=== PATIENT | male | born 1950 | race Caucasian/White ===

== ENCOUNTER 2020-10-25 20:49 | Emergency (ER) | payer MEDICARE, OTHER ==
[~2020-10-25] VITALS: Ht 175.3 cm; Wt 97.0 kg
[~2020-10-25 20:49] MED LIST: AMLODIPINE5 MG PO; LOSARTAN POTAS100 MG PO; LOSARTAN/HCT1 TA2 PO; MEDDOSEPAK OR; MEDDOSEPAK PO; MOBIC7.5 M1 PO; NORVASC5 M1 PO; PAIN RELIEF EX500 M1 PO; ROBITUSSIN AC10 ML PO; TRAMADOL HCL50 MG PO
[2020-10-25] MEDS ORDERED: HYDROCHLOROT12.5 M1 PO (21:25)
[2020-10-25 21:46] LABS: HEMATOCRIT 41.3 % (39.0-50.0); HEMOGLOBIN 14.2 g/dl (14.0-18.0); IMMATURE GRANULOCYTES 0.7 % (0.0-5.0); MEAN CELL VOLUME 94.7 fL CALC (80.0-100.0); MEAN CORPUSCULAR HGB 32.6 pG CALC (26.0-32.0); MEAN CORPUSCULAR HGB CONC 34.4 g/dL CAL (32.0-36.0); NEUT# 4.26 thou/uL (1.82-7.42); RED BLOOD COUNT 4.36 mill/uL (4.70-6.10); RED CELL DISTRI WIDTH 12.7 % (11.5-15.5)
[2020-10-25 22:01] LABS: ALBUMIN 4.7 g/dL (3.2-5.0); ALKALINE PHOSPHATASE 117 u/l (38-126); ANION GAP 16 (6-22 (CALC)); BILIRUBIN, TOTAL 1.1 mg/dL (0.0-1.4); BUN 18 mg/dL (8-23); BUN/CREATININE RATIO 23 (12-20 (CALC)); CARBON DIOXIDE 22 mmol/l (22-30); CHLORIDE 91 mmol/l (95-108); CREATININE 0.8 mg/dL (0.7-1.3); GFR > 60 ML/MIN (>=60 (CALC)); GFR FOR AFR.AMER. > 60 ML/MIN (>=60 (CALC)); POTASSIUM 4.1 mmol/l (3.5-5.1); SGOT/AST 38 u/l (19-48); SODIUM 125 mmol/l (137-146); TOTAL PROTEIN 8.4 g/dL (6.3-8.2)
[2020-10-25 22:03] LABS: D-DIMER 0.45 mg/L (0.19-0.60)
[2020-10-25 22:09] LABS: ACT PARTIAL THROMBO TIME 27.2 SECONDS (20.0-32.5); PROTHROMBIN TIME 9.7 SECONDS (9.0-12.5)
[2020-10-25 22:12] LABS: MYOGLOBIN 73 ng/mL (0 - 121)
[2020-10-25 22:49] LABS: URINE BILIRUBIN - DIPSTICK NEGATIVE (NEGATIVE); URINE BLOOD DIPSTICK NEGATIVE (NEGATIVE); URINE COLOR YELLOW; URINE GLUCOSE - DIPSTICK NEGATIVE (NEGATIVE); URINE KETONE TRACE mg/dL (NEGATIVE); URINE LEUK ESTERASE NEGATIVE (NEGATIVE); URINE PROTEIN - DIPSTICK NEGATIVE (NEG-TRACE); URINE SPECIFIC GRAVITY <=1.005; URINE UROBILINOGEN - DIPSTICK 0.2 E.U./dL (0.2)
[2020-10-25 22:50] LABS: URINE NITRITE - DIPSTICK NEGATIVE (Negative)
[2020-10-25] MEDS ORDERED: TOPROL XL50 MG PO (23:07)
[2020-10-25 23:19] VITALS: BP 145/69
== END 2020-10-25 23:23 | disposition home or self-care (01) ==
LOC: ED 20:49
PROVIDERS: Family Medicine
DX: E87.1 Hypo-osmolality and hyponatremia (principal); I10 Essential (primary) hypertension

== ENCOUNTER 2021-04-08 07:17 | Day surgery (SDC) | payer MEDICARE, OTHER ==
[~2021-04-08 07:17] MED LIST changes: +HYDROCHLOROT12.5 M1 PO; +TOPROL XL50 MG PO
[2021-04-08 10:20] VITALS: BP 171/74
== END 2021-04-08 10:20 | disposition home or self-care (01) ==
LOC: ORM 07:17
PROVIDERS: ATTEND Anesthesiology Pain Medicine
DX: M54.59 Other low back pain (principal)

== ENCOUNTER 2021-11-03 20:40 | Emergency (ER) | payer MEDICARE, OTHER ==
[~2021-11-03] VITALS: Ht 175.3 cm; Wt 95.0 kg
[2021-11-03 21:36] LABS: HEMATOCRIT 41.8 % (39.0-50.0); HEMOGLOBIN 14.2 g/dl (14.0-18.0); IMMATURE GRANULOCYTES 0.5 % (0.0-5.0); MEAN CELL VOLUME 98.4 fL CALC (80.0-100.0); MEAN CORPUSCULAR HGB 33.4 pG CALC (26.0-32.0); NEUT# 11.13 thou/uL (1.82-7.42); RED BLOOD COUNT 4.25 mill/uL (4.70-6.10); RED CELL DISTRI WIDTH 12.8 % (11.5-15.5)
[2021-11-03 21:46] VITALS: BP 208/112
[2021-11-03 21:53] LABS: ALBUMIN 4.3 g/dL (3.2-5.0); ALKALINE PHOSPHATASE 141 u/l (38-126); AMYLASE 67 u/l (30-110); ANION GAP 16 (6-22 (CALC)); BILIRUBIN, TOTAL 0.5 mg/dL (0.0-1.4); BUN 16 mg/dL (8-23); BUN/CREATININE RATIO 20 (12-20 (CALC)); CARBON DIOXIDE 17 mmol/l (22-30); CHLORIDE 97 mmol/l (95-108); CREATININE 0.8 mg/dL (0.7-1.3); GFR FOR AFR.AMER. > 60 ML/MIN (>=60 (CALC)); GFR OTHER RACES > 60 ML/MIN (>=60 (CALC)); LIPASE 62 u/l (23-300); POTASSIUM 3.7 mmol/l (3.5-5.1); SGOT/AST 24 u/l (19-48); SODIUM 126 mmol/l (137-146); TOTAL PROTEIN 7.8 g/dL (6.3-8.2)
[2021-11-03 22:01] VITALS: BP 163/91
[2021-11-03 22:04] LABS: MYOGLOBIN 65 ng/mL (0 - 121)
[2021-11-03 22:29] LABS: URINE BILIRUBIN - DIPSTICK NEGATIVE (NEGATIVE); URINE BLOOD DIPSTICK NEGATIVE (NEGATIVE); URINE COLOR YELLOW; URINE GLUCOSE - DIPSTICK NEGATIVE (NEGATIVE); URINE KETONE TRACE mg/dL (NEGATIVE); URINE LEUK ESTERASE NEGATIVE (NEGATIVE); URINE PROTEIN - DIPSTICK NEGATIVE (NEG-TRACE); URINE UROBILINOGEN - DIPSTICK 0.2 E.U./dL (0.2)
[2021-11-03 22:30] VITALS: BP 180/100
[2021-11-03 22:30] LABS: URINE NITRITE - DIPSTICK NEGATIVE (Negative)
[2021-11-03 22:41] VITALS: BP 169/94
[2021-11-03 23:00] VITALS: BP 168/89
[2021-11-03 23:31] VITALS: BP 178/84
[2021-11-04] VITALS (11 sets, daily range): BP systolic 141–184; BP diastolic 83–97
[2021-11-04] MEDS ORDERED: BACTRIM DS1 TAB PO (00:46)
[2021-11-04] MEDS ORDERED: ONDANSETRON4 MG PO (00:46)
[2021-11-04] MEDS ORDERED: PREVACID30 M3 PO (02:04)
[2021-11-04 03:35] LABS: ACT PARTIAL THROMBO TIME 29.4 SECONDS (20.0-32.5)
== END 2021-11-04 03:41 | disposition short-term general hospital (02) ==
LOC: ED 20:40
PROVIDERS: Emergency Medicine
DX: I48.91 Unspecified atrial fibrillation (principal); R79.89 Other specified abnormal findings of blood chemistry; I10 Essential (primary) hypertension; Z79.01 Long term (current) use of anticoagulants; Z20.822 Contact with and (suspected) exposure to COVID-19
CPT/HCPCS: Q9967

== ENCOUNTER 2022-08-16 16:50 | Emergency (ER) | payer MEDICARE, OTHER ==
[2022-08-16] VITALS (13 sets, daily range): BP systolic 143–205; BP diastolic 83–106
[~2022-08-16] VITALS: Ht 175.3 cm; Wt 187.0 kg
[~2022-08-16 16:50] MED LIST changes: +BACTRIM DS1 TAB PO; +ONDANSETRON4 MG PO; +PREVACID30 M3 PO
[2022-08-16 17:52] LABS: BASO% 0.5 % (0-3); EOS% 1.1 % (0-8); HEMOGLOBIN 13.1 g/dl (14.0-18.0); IMMATURE GRANULOCYTES 0.3 % (0.0-5.0); LYMPH% 27.2 % (15-41); MEAN CELL VOLUME 96.5 fL CALC (80.0-100.0); MEAN CORPUSCULAR HGB 30.8 pG CALC (26.0-32.0); MONO% 8.7 % (2-13); NEUT# 4.59 thou/uL (1.82-7.42); NEUT% 62.2 % (42-76); RED BLOOD COUNT 4.25 mill/uL (4.70-6.10); RED CELL DISTRI WIDTH 14.3 % (11.5-15.5)
[2022-08-16 18:19] LABS: ALBUMIN 4.9 g/dL (3.2-5.0); ALKALINE PHOSPHATASE 195 u/l (38-126); ANION GAP 15 (6-22 (CALC)); BILIRUBIN, TOTAL 0.7 mg/dL (0.2-1.3); BUN 24 mg/dL (8-23); BUN/CREATININE RATIO 25 (12-20 (CALC)); CARBON DIOXIDE 24 mmol/l (22-30); CHLORIDE 99 mmol/l (95-108); GFR FOR AFR.AMER. > 60 ML/MIN (>=60 (CALC)); GFR OTHER RACES > 60 ML/MIN (>=60 (CALC)); POTASSIUM 4.9 mmol/l (3.5-5.1); SGOT/AST 53 u/l (19-48); SODIUM 133 mmol/l (137-146); TOTAL PROTEIN 8.5 g/dL (6.3-8.2)
[2022-08-16 18:28] LABS: PROTHROMBIN TIME 10.1 SECONDS (9.0-12.5)
[2022-08-16 19:35] LABS: URINE BILIRUBIN - DIPSTICK NEGATIVE (NEGATIVE); URINE BLOOD DIPSTICK NEGATIVE (NEGATIVE); URINE COLOR YELLOW; URINE GLUCOSE - DIPSTICK NEGATIVE (NEGATIVE); URINE KETONE NEGATIVE (NEGATIVE); URINE LEUK ESTERASE NEGATIVE (NEGATIVE); URINE PH 6.5 (4.5-8.0); URINE PROTEIN - DIPSTICK NEGATIVE (NEG-TRACE); URINE SPECIFIC GRAVITY 1.015; URINE UROBILINOGEN - DIPSTICK 0.2 E.U./dL (0.2)
[2022-08-16 19:41] LABS: URINE NITRITE - DIPSTICK NEGATIVE (Negative)
== END 2022-08-16 21:34 | disposition left against medical advice (07) ==
LOC: ED 16:50
PROVIDERS: Family Medicine
DX: S01.112A Laceration without foreign body of left eyelid and periocular area, initial encounter (principal); S51.812A Laceration without foreign body of left forearm, initial encounter; I48.91 Unspecified atrial fibrillation; I10 Essential (primary) hypertension; W01.0XXA Fall on same level from slipping, tripping and stumbling without subsequent striking against object, initial encounter; Y92.009 Unspecified place in unspecified non-institutional (private) residence as the place of occurrence of the external cause; Z79.01 Long term (current) use of anticoagulants; Z53.29 Procedure and treatment not carried out because of patient's decision for other reasons